=== PATIENT | male | born 1980 | race Caucasian/White ===

== ENCOUNTER → 2019-10-22 | Day surgery (SDC) | payer OTHER ==
[~2019-10-22] VITALS: Ht 167.6 cm; Wt 58.0 kg
[2019-10-22 10:28] VITALS: BP 136/76
[2019-10-22 15:35] VITALS: BP 112/53
== END | disposition home or self-care (01) ==
LOC: DS 09:32 → OR 12:00 → DS 12:00
DX: R19.7 Diarrhea, unspecified (principal); R11.0 Nausea; K63.89 Other specified diseases of intestine; Z21 Asymptomatic human immunodeficiency virus [HIV] infection status; Z91.040 Latex allergy status; Z91.09 Other allergy status, other than to drugs and biological substances; Z79.899 Other long term (current) drug therapy; Z98.890 Other specified postprocedural states
CPT/HCPCS: 43235; 45378; J1200; J1610; J2250; J2310; J3010; J3490

== ENCOUNTER → 2019-11-12 | Outpatient (CLI) | payer OTHER | END | disposition home or self-care (01) | LOC: NM 08:43 | DX: R11.0 Nausea (principal); R10.9 Unspecified abdominal pain ==

== ENCOUNTER → 2019-11-17 | Outpatient (CLI) | payer OTHER | END | disposition home or self-care (01) | LOC: LB 09:05 → RD 09:05 | DX: R11.0 Nausea (principal); R10.9 Unspecified abdominal pain ==

== ENCOUNTER → 2020-11-17 | Outpatient (CLI) | payer OTHER | END | disposition home or self-care (01) | LOC: MI 11:00 | PROVIDERS: ATTEND Internal Medicine Cardiovascular Disease | PROC: BR39ZZZ Magnetic Resonance Imaging (MRI) of Lumbar Spine (ICD-10-PCS; principal; 2020-11-17) | DX: M54.40 Lumbago with sciatica, unspecified side (principal); M54.17 Radiculopathy, lumbosacral region; M51.27 Other intervertebral disc displacement, lumbosacral region ==